=== PATIENT | female | born 1995 | race Caucasian/White ===

== ENCOUNTER 2016-06-22 15:44 | Emergency (ER) | payer OTHER ==
[2016-06-22 19:50] VITALS: BP 102/64
== END 2016-06-22 17:31 | disposition home or self-care (01) ==
LOC: ED 15:44
DX: O20.0 Threatened abortion (principal); Z3A.01 Less than 8 weeks gestation of pregnancy

== ENCOUNTER 2017-05-14 16:20 | Emergency (ER) | payer OTHER ==
[~2017-05-14] VITALS: Ht 167.6 cm; Wt 72.6 kg
[2017-05-14 16:22] VITALS: Ht 167.6 cm; Wt 72.6 kg
[2017-05-14 17:09] LABS: BASOPHIL % 1.1 % (0-2); PLATELET COUNT 268 x10^3mcL (130-400); RED CELL DISTRIBUTION WIDTH 14.1 % (11.5-14.5)
[2017-05-14 17:14] LABS: CALCIUM 9.1 mg/dL (8.5-10.1); CARBON DIOXIDE 25.1 mmol/L (21-32); CHLORIDE SERUM 101 mmol/L (98-107); CREATININE SERUM 1.1 mg/dL (0.6-1.0); GFR1 > 60 mL/min; GLUCOSE SERUM 99 mg/dL (74-106); POTASSIUM SERUM 3.8 mmol/L (3.5-5.1); SODIUM SERUM 136 mmol/L (136-145)
[2017-05-14 17:19] LABS: ALBUMIN 3.8 g/dL (3.4-5.0); ALKALINE PHOSPHATASE 78 U/L (46-116); ALT/SGPT 19 U/L (14-59); AST/SGOT 17 U/L (15-37); BILIRUBIN TOTAL 0.3 mg/dL (0.20-1.00); LIPASE 136 IU/L (73-393); TOTAL PROTEIN, SERUM 7.7 g/dL (6.4-8.2)
[2017-05-14 17:38] VITALS: BP 104/67
== END 2017-05-14 18:07 | disposition home or self-care (01) ==
LOC: ED 16:20
PROVIDERS: Emergency Medicine
DX: N83.209 Unspecified ovarian cyst, unspecified side (principal)
CPT/HCPCS: 36415; 87491; 87591; J0696; J1885